=== PATIENT | female | born 1985 | race Caucasian/White ===

== ENCOUNTER 2023-01-03 10:42 | Emergency (ER) | payer OTHER ==
[~2023-01-03] VITALS: Ht 154.9 cm; Wt 70.0 kg
[~2023-01-03 10:42] MED LIST: AMOXICILLIN500 MG OR; ANTIVERT PO; DEPAKOTE ER500 MG PO; LITHIUM CARB600 MG OR; MEDDOSEPAK PO; NO MEDS; ONDANSETRON4 MG PO; SEROQUEL100 MG OR; SEROQUEL25 MG PO; XANAX0.5 MG PO
[2023-01-03 10:54] VITALS: BP 106/70
[2023-01-03 11:00] VITALS: BP 106/57
[2023-01-03 11:38] VITALS: BP 111/71
[2023-01-03 11:46] LABS: URINE BILIRUBIN - DIPSTICK Negative (NEGATIVE); URINE BLOOD DIPSTICK Trace-intact (NEGATIVE); URINE GLUCOSE - DIPSTICK Negative (NEGATIVE); URINE KETONE Negative (NEGATIVE); URINE LEUK ESTERASE Negative (NEGATIVE); URINE PH 5.5 (4.5-8.0); URINE PROTEIN - DIPSTICK Negative (NEG-TRACE); URINE UROBILINOGEN - DIPSTICK 0.2 E.U./dL (0.2)
[2023-01-03 11:47] LABS: URINE COLOR Yellow; URINE NITRITE - DIPSTICK Positive (Negative)
[2023-01-03 11:56] LABS: URINE BACTERIA MODERATE hpf; URINE RBC 0-2 RBC/hpf (0-5); URINE SQUAMOUS EPITHELIAL CELL FEW EPI/hpf (0-FEW)
[2023-01-03 12:00] VITALS: BP 106/75
[2023-01-03] MEDS ORDERED: OMNI-PAC300 MG PO (12:15)
[2023-01-03 12:30] VITALS: BP 106/78
[2023-01-03] MEDS ORDERED: ADDERALL XR25 MG PO (12:40)
[2023-01-03] MEDS ORDERED: ACETAMINOP160 MG/5 M PO (12:41)
== END 2023-01-03 13:04 | disposition home or self-care (01) ==
LOC: ED 10:42
PROVIDERS: Family Medicine
DX: J06.9 Acute upper respiratory infection, unspecified (principal); N39.0 Urinary tract infection, site not specified; F31.9 Bipolar disorder, unspecified; Z20.822 Contact with and (suspected) exposure to COVID-19

== ENCOUNTER 2023-02-08 12:09 | Emergency (ER) | payer OTHER ==
[~2023-02-08] VITALS: Ht 154.9 cm; Wt 72.0 kg
[~2023-02-08 12:09] MED LIST changes: +ACETAMINOP160 MG/5 M PO; +ADDERALL XR25 MG PO; +OMNI-PAC300 MG PO; +PROAIR RES108 MCG/AC IN; +ZPAK PO
[2023-02-08 12:21] VITALS: BP 122/89
[2023-02-08 12:30] VITALS: BP 121/86
[2023-02-08] MEDS ORDERED: PREDNISONE50 MG PO (13:50)
[2023-02-08] MEDS ORDERED: DOXY-CAPS100 MG PO (13:50)
[2023-02-08] MEDS ORDERED: VENTOLIN HFA108 MCG PO (13:50)
[2023-02-08 14:32] VITALS: BP 122/72
[2023-02-08 14:41] VITALS: BP 122/72
== END 2023-02-08 14:41 | disposition home or self-care (01) ==
LOC: ED 12:09
DX: J06.9 Acute upper respiratory infection, unspecified (principal); J40 Bronchitis, not specified as acute or chronic; F31.9 Bipolar disorder, unspecified

== ENCOUNTER 2023-10-19 18:17 | Emergency (ER) | payer OTHER ==
[~2023-10-19 18:17] MED LIST changes: +DOXY-CAPS100 MG PO; +PREDNISONE50 MG PO; +VENTOLIN HFA108 MCG PO
[2023-10-19] MEDS ORDERED: ONDANSETRON HCl 4 MG/2 ML SDV IV ONE (18:30)
[2023-10-19] MEDS ORDERED: SODIUM CHLORIDE 0.9% 1,000 ML IV ONE (18:30)
[2023-10-19] MEDS ORDERED: MIDAZOLAM HCL 2 MG/2 ML VIAL IV ONE (18:30)
[2023-10-19] MEDS ORDERED: LORazepam 2 MG/ML IV ONE (18:40)
[2023-10-19 18:55] LABS: BASO% 0.5 % (0-3); EOS% 2.4 % (0-8); HEMATOCRIT 32.9 % (37.0-47.0); HEMOGLOBIN 10.3 g/dl (12.0-16.0); IMMATURE GRANULOCYTES 0.3 % (0.0-5.0); LYMPH% 19.6 % (15-41); MEAN CELL VOLUME 77.8 fL CALC (80.0-100.0); MEAN CORPUSCULAR HGB 24.3 pG CALC (26.0-32.0); MEAN CORPUSCULAR HGB CONC 31.3 g/dL CAL (32.0-36.0); NEUT# 9.2 thou/uL (2.00-7.15); NEUT% 71.2 % (42-76); RED BLOOD COUNT 4.23 mill/uL (4.20-5.60); RED CELL DISTRI WIDTH 15.7 % (11.5-15.5)
[2023-10-19 19:07] LABS: ALKALINE PHOSPHATASE 67 u/l (38-126); ANION GAP 8 (6-22 (CALC)); BILIRUBIN, TOTAL 0.3 mg/dL (0.02-1.3); BUN 20 mg/dL (7-17); BUN/CREATININE RATIO 22 (12-20 (CALC)); CARBON DIOXIDE 22 mmol/l (22-30); CHLORIDE 115 mmol/l (95-108); CREATININE 0.9 mg/dL (0.5-1.0); ESTIMATED GFR 84 ML/MIN (>=90 (CALC)); ETHYL ALCOHOL 0 mg/dl (0-30); LIPASE 80 u/l (23-300); POTASSIUM 3.6 mmol/l (3.5-5.1); SGOT/AST 28 u/l (14-36); SODIUM 140 mmol/l (137-146); TOTAL PROTEIN 6.9 g/dL (6.3-8.2)
[2023-10-19] MEDS ORDERED: LACTATED RINGER'S 1,000 ML IV ONE (20:40)
[2023-10-19] MEDS ORDERED: THIAMINE HCL 100 MG/ML 2ML VIAL IV ONE (20:40)
[2023-10-19 23:00] VITALS: BP 112/82
[2023-10-19 23:15] VITALS: BP 120/87
[2023-10-19 23:30] VITALS: BP 125/85
[2023-10-19 23:33] LABS: URINE BILIRUBIN - DIPSTICK Negative (NEGATIVE); URINE BLOOD DIPSTICK Moderate (NEGATIVE); URINE GLUCOSE - DIPSTICK Negative (NEGATIVE); URINE KETONE Negative (NEGATIVE); URINE PH 5.5 (4.5-8.0); URINE PROTEIN - DIPSTICK Negative (NEG-TRACE); URINE SPECIFIC GRAVITY 1.025; URINE UROBILINOGEN - DIPSTICK 0.2 E.U./dL (0.2)
[2023-10-19 23:34] LABS: URINE COLOR Yellow; URINE NITRITE - DIPSTICK Positive (Negative)
[2023-10-19 23:38] LABS: URINE LEUK ESTERASE Negative (NEGATIVE)
[2023-10-19 23:40] LABS: URINE BACTERIA MANY hpf; URINE EPITHELIAL CELLS MODERATE EPI/hpf (0-FEW)
[2023-10-19 23:45] VITALS: BP 120/81
[2023-10-20 00:15] VITALS: BP 104/77
[2023-10-20 00:35] VITALS: BP 104/77
== END 2023-10-20 00:35 | DRG 918 ==
LOC: ED 18:17 → EDBD 18:17 → ED 18:54
PROVIDERS: Family Medicine
DX: T50.911A Poisoning by multiple unspecified drugs, medicaments and biological substances, accidental (unintentional), initial encounter (principal); R11.2 Nausea with vomiting, unspecified; R25.1 Tremor, unspecified; R10.13 Epigastric pain; R61 Generalized hyperhidrosis; F19.10 Other psychoactive substance abuse, uncomplicated; R82.71 Bacteriuria
CPT/HCPCS: J2060